=== PATIENT | female | born 1955 | race American Indian/Alaskan Native ===

== ENCOUNTER 2019-11-01 06:36 | Day surgery (SDC) | payer MEDICAID ==
[2019-11-01 07:24] LABS: Hematocrit 41.1 % (30.3-42.9); Hemoglobin 14.2 gm/dl (10.1-14.3); Mean Corpuscular HGB Conc 35 % (30-34); Mean Corpuscular Volume 93 fl (79-97); Platelet Count 295 K/mm3 (140-440); Red Blood Count 4.41 M/mm3 (3.65-5.03)
[2019-11-01 07:37] LABS: INR 1.05 (0.87-1.13)
[2019-11-01 07:38] LABS: Partial Thromboplastin Time 30.9 Sec. (24.2-36.6)
[2019-11-01 07:45] LABS: BUN/Creatinine Ratio 20; Blood Urea Nitrogen 14 mg/dL (7-17); Calcium 9.9 mg/dL (8.4-10.2); Hemolysis Index 3
[2019-11-01] MEDS ORDERED: SODIUM CHLORIDE 0.9% 500 ML 500 ML IV SCH (08:00)
[2019-11-01] MEDS ORDERED: HEPARIN/NS 5000 UNIT/500ML 1,000 ML IR ONE (08:21)
[2019-11-01] MEDS ORDERED: SODIUM CHLORIDE 0.9% 500 ML 0 ML ONE (08:21)
[2019-11-01] MEDS ORDERED: ceFAZolin/Water 2 GM/20 ML 2 GM/20 ML SYRINGE IV ONE (08:22)
[2019-11-01] MEDS: MIDAZOLAM 2 MG/2 ML INJ ONE ×8 (09:09→11:39)
[2019-11-01] MEDS: fentaNYL 100 MCG/2 ML INJ ONE ×8 (09:09→11:39)
[2019-11-01] MEDS: LIDOCAINE (2%) 20 MG/1 ML VIAL 20 ML MDV INFILTRATI ONE ×3 (09:11→09:49)
[2019-11-01] MEDS: HEPARIN 10,000 UNITS/10 ML VIAL ONE ×3 (09:25→10:53)
[2019-11-01] MEDS ORDERED: NITROGLYCERIN SYRINGE 3 ML ONE (09:41)
[2019-11-01] MEDS ORDERED: VERAPAMIL 5 MG/2 ML INJ ONE (09:41)
[2019-11-01] MEDS ORDERED: LIDOCAINE (2%) 20 MG/1 ML VIAL 20 ML MDV INFILTRATI ONE (09:48)
[2019-11-01] MEDS ORDERED: SODIUM CHLORIDE 0.9% 1000 ML 1,000 ML ONE (10:20)
[2019-11-01] MEDS ORDERED: HEPARIN/NS 5000 UNIT/500ML 500 ML IR ONE (10:22)
--- NOTE | 2019-11-01 12:34 | Short Stay Summary ---
Short Stay Documentation Date of service: 11/01/19 Narrative H&P: See H&P - History H&P: obtained from office - Allergies and Medications Current Medications: Allergies No Known Allergies Allergy (Unverified 11/01/19 06:41) Home Medications Medication Instructions Recorded Confirmed Last Taken Type Benazepril/Hydrochlorothiazide 1 tab PO DAILY 11/01/19 11/01/19 10/31/19 History [Benazepril-Hctz 10-12.5 mg Tab] 1 tab Clopidogrel [Plavix] 75 mg PO DAILY 11/01/19 11/01/19 11/01/19 04:30 History 75 mg Ergocalciferol [Vitamin D2] 50,000 unit PO QWEEK 11/01/19 11/01/19 10/29/19 History 1 tab Leucovorin/Pyridox/Mecobalamin 1 tab PO QWEEK 11/01/19 11/01/19 10/31/19 History [Folinic-Plus Caplet] 1 tab [place]-3 Fatty Acids/Fish Oil [Fish 1 each PO DAILY 11/01/19 11/01/19 10/31/19 History Oil] 1 tab Vit D3-Vit K/Berberine/Hops 1 tab PO DAILY 11/01/19 11/01/19 10/31/19 History [Ostera Tablet] 1 tab amLODIPine 5 mg PO DAILY 11/01/19 11/01/19 11/01/19 04:30 History 5 mg cilostazoL [Pletal] 100 mg PO DAILY 11/01/19 11/01/19 10/31/19 History 100 mg Active Medications Sodium Chloride (Nacl 0.9% 500 Ml) 500 mls @ 50 mls/hr IV DIRECT ROSANNA Last Admin: 11/01/19 07:53 Dose: 50 mls/hr Documented by: - Brief post op/procedure progress note Date of procedure: 11/01/19 Pre-op diagnosis: Peripheral Vascular Disease with Bilateral Lower Extremity Claudication Post-op diagnosis: same Procedure: 1. Ultrasound-Guided Access Right Common Femoral Artery 2. Diagnostic Aortogram (No Previous Films for Comparison) 3. Diagnostic Left Lower Extremity Arteriogram (No Previous Films for Comparison) 4. Ultrasound-Guided Access Left Posterior Tibial Artery In Retrograde Fashion 5. Atherectomy with Angioplasty and Stent of Left SFA and Popliteal Artery With 2.1/3.0 Jetstream Atherectomy Catheter and 5 x 150 IN.Pact Drug-Coated Balloon In the Popliteal Artery and 6 x 150 IN.Pact Drug-Coated Balloon In the SFA and Common Femoral Artery Followed by a 6 x 5 cm Viabahn Stent Graft and 7 x 80 EverFlex Self-Expanding Stent in the SFA 6. Angioplasty and Stent of the Left External Iliac Artery with a 7 x 59 Viaban VBX Balloon Expandable Stent Graft 7. Angioplasty of Left Posterior Tibial Artery with a 3 x 220 [place] Balloon 8. Closure of Right Femoral Arteriotomy With a Pro-[place] Closure Device 9. Radiologic Supervision with Interpretation Anesthesia: local, other (Monitored Moderate Sedation) Surgeon: PARAM QUILES Estimated blood loss: minimal Pathology: none Condition: stable - Disposition Condition at discharge: Good Disposition: [id number] TO HOME OR SELFCARE Short Stay Discharge Plan Activity: other (No strenuous activity or heavy lifting for 24 hours) Wound: remove dressing (24 hours) Follow up with: PARAM QUILES MD [Staff Physician] - 14 Days Prescriptions: HYDROcodone/APAP 7.5-325 [[place] 7.5/325] 1 each PO Q6HR PRN #30 tablet PRN Reason: Pain
[2019-11-01] MEDS ORDERED: HYDROcodone/ACETAMINOPHEN 5-325 MG TAB PO PRN (12:42)
[2019-11-01] MEDS ORDERED: MORPHINE 4 MG/1 ML INJ IV ONE (12:42)
--- NOTE | 2019-11-01 12:47 | Operative Report ---
Operative Report Operative Report: Date of Procedure: 11/01/2019 Pre-operative Diagnosis: Peripheral Vascular Disease with Bilateral Lower Extremity Claudication Post-operative Diagnosis: Same Procedure(s): 1. Ultrasound-Guided Access Right Common Femoral Artery 2. Diagnostic Aortogram (No Previous Films for Comparison) 3. Diagnostic Left Lower Extremity Arteriogram (No Previous Films for Comparison) 4. Ultrasound-Guided Access Left Posterior Tibial Artery In Retrograde Fashion 5. Atherectomy with Angioplasty and Stent of Left SFA and Popliteal Artery With 2.1/3.0 Jetstream Atherectomy Catheter and 5 x 150 IN.Pact Drug-Coated Balloon In the Popliteal Artery and 6 x 150 IN.Pact Drug-Coated Balloon In the SFA and Common Femoral Artery Followed by a 6 x 5 cm Viabahn Stent Graft and 7 x 80 EverFlex Self-Expanding Stent in the SFA 6. Angioplasty and Stent of the Left External Iliac Artery with a 7 x 59 Viaban VBX Balloon Expandable Stent Graft 7. Angioplasty of Left Posterior Tibial Artery with a 3 x 220 [place] Balloon 8. Closure of Right Femoral Arteriotomy With a Pro-[place] Closure Device 9. Radiologic Supervision with Interpretation Surgeon: Adolfo Cadena M.D. Band Master: None Anesthesia: 1% Lidocaine/Monitored Moderate Sedation EBL: Minimal Counts: Correct Complications: None Condition: Stable Specimen: None Indication: The patient is a 64-year-old female with a history of tobacco abuse and peripheral vascular disease who was referred to pa with short distance claudication left greater than right. She had a previous CTA with runoff that demonstrated iliofemoral disease. She is in need of a diagnostic arteriogram to evaluate her anatomy secondary to difficulty identifying the true anatomy because of heavy calcification on the CT. She was given the risk, benefits, and alternative procedures and consented to the procedure. Angiographic Findings: Diagnostic aortogram revealed that the aorta was aneurysmal and heavily calcified without any evidence of flow-limiting stenosis. The left lower extremity arteriogram revealed the left common iliac artery was heavily calcified with approximately 20% stenosis. The external iliac artery was occluded at its origin and there was no evidence of reconstitution of the artery. There was approximately 30% stenosis at the origin of the hypogastric artery and the remainder of the artery appeared widely patent without any evidence of flow-limiting stenosis. The left common femoral artery was occluded and there was reconstitution of the profunda artery through collaterals from the hypogastric artery. The SFA was occluded and there was reconstitution of flow in the popliteal artery just distal to the adductor hiatus through collateral flow from the profunda artery. The popliteal artery was diffusely diseased in the above-knee segment with 50 to 75% stenosis. The below-knee segment was patent without any evidence of flow-limiting stenosis. The patient had three- vessel runoff with the anterior tibial artery patent throughout its course without significant flow-limiting stenosis. The peroneal artery occluded in the mid calf without any evidence of distal reconstitution. There was approximately 50% stenosis at the origin of the posterior tibial artery and the remainder of the artery appeared patent throughout the remainder of his course. After intervention the external iliac artery was patent with approximately 20% residual stenosis in the distal artery. The common femoral artery was patent with a dissection that was not flow-limiting however there was approximately 30% reduction of the flow lumen. The SFA and popliteal artery were patent with approximately 15% residual stenosis in the proximal SFA and less than 10% res idual stenosis in the remainder of the SFA and popliteal artery. The posterior tibial artery was patent with less than 10% residual stenosis. Description of Procedure: The patient was brought to the angio suite and laid in supine position. After timeout was performed her right groin and left calf and foot were prepped and draped in normal sterile fashion. Ultrasound was used to identify the right common femoral artery and confirm patency. Once patency was confirmed the overlying skin and soft tissue was anesthetized with lidocaine and an 11 blade was used to make a small stab incision. A curved hemostat was used with ultrasound guidance to bluntly dissect down to the anterior surface of the right common femoral artery and a 21-gauge micropuncture needle was used with ultrasound guidance to access the right common femoral artery. A 0.018 wire was advanced into the right external iliac artery and the micropuncture needle was exchanged for micropuncture sheath by Seldinger technique. The wire and inner dilator were removed and a 0.035 J-wire was advanced into the aorta under fluoroscopy. The micropuncture sheath was then exchanged for 5 [place] sheath by Seldinger technique. I then advanced an Omni Flush catheter into the aorta and remove the wire and performed the diagnostic aortogram with the previously described findings. I then used the 0.035 advantage wire and advanced this over the bifurcation with the Omni Flush catheter and performed the left lower extremity arteriogram with the previously described findings. I then advanced the advantage wire into the hypogastric artery and then advanced the catheter into the artery and exchanged the advantage wire for the J-wire. I then exchanged the 5 Nigerian sheath for a 7 Nigerian 45 cm destination sheath and advan jacqueline this into the distal left common iliac artery. I exchanged the J-wire for a 0.018 V18 wire and used a Navicross catheter and attempted to traverse the occluded external iliac artery. I was eventually able to cross the occluded artery with the Navicross catheter and a 0.018 30 g [place] Wire however upon entering the common femoral artery it became apparent that it was in the subintimal plane so I pulled the catheter and wire back into the common iliac artery and decided to attempt to cross the occluded vessels from a retrograde approach. I used the ultrasound to identify the left posterior tibial artery and once identified the artery I used lidocaine to anesthetize the skin and overlying soft tissue. Using 11 blade to make a small stab incision and then used a micropuncture needle to access the artery. I advanced a 0.018 micropuncture wire and then placed a 4/5 glide slender sheath by Seldinger technique. I infused a radial cocktail through the sheath which contained a combination of heparin, nitroglycerin, and verapamil. I then used a Navicross catheter and V 18 wire to cross the occluded SFA, common femoral, and external iliac artery. I then advanced a vertebral catheter from the 7 Nigerian sheath that was over the bifurcation was able to cannulate the sheath and advanced the V 18 wire through the right femoral sheath. I pulled enough of the V 18 wire out of the right groin and then remove the Navicross catheter and advanced it over the V 18 in a antegrade fashion into the posterior tibial artery. I then exchanged the V 18 wire for a 0.014 ThruWay wire and performed atherectomy of the SFA and popliteal artery begin in the midportion of the SFA as I worry that the common femoral artery and proximal SFA had dissection flaps. After performing atherectomy I performed an angiogram there revealed an area of extravasation at my proximal point of begin an atherectomy. I performed angioplasty with a 5 x 200 balloon across the area of extravasation in left the balloon inflated for approximately 5 minutes. The follow-up angiogram revealed less than 20% residual stenosis however there was a slight blush of contrast outside of the artery so I decided to place a 6 x 5 cm Viabahn Stent Graft across the area of extravasation. I then used two 5 x 150 IN.Pact drug-coated balloons to perform angioplasty of the popliteal artery and mid SFA. I performed angioplasty of the proximal SFA and common femoral artery with a 6 x 150 IN.Pact Drug-Coated Balloon. This resulted in approximately 50% residual stenosis within the common femoral artery and approximately 60% residual stenosis in the proximal SFA. I advanced a 3 x 220 [place] balloon into the posterior tibial artery and then remove the 4/5 [place] Slender Sheath from the posterior tibial artery and performed angioplasty to seal the access site. I then pulled the balloon back to the origin of the posterior tibial artery and performed angioplasty with a result of less than 10% residual stenosis. I next placed a 7 x 80 EverFlex Self-Expanding Stent across the residual stenosis in the proximal SFA and postdilated this with a 5 mm balloon with a result of approximately 15% residual stenosis. I pulled the sheath back into the proximal common iliac artery and used the previously used 6 mm drug-coated balloon to predilate the external iliac artery. I then placed a 7 x 59 Viabahn VBX Balloon Expandable Stent Graft and deployed it in the external iliac artery with a result of less than 10% residual stenosis in the proximal portion of the artery however there was approximately 20% residual stenosis in the distal artery that was treated with just balloon angioplasty alone. I used the 7 mm balloon from the stent graft to perform angioplasty of the common femoral artery and this reduced the 50% stenosis to approximately 30% stenosis with some evidence of dissection however this was not flow-limiting. Because I crossed the common femoral and a subintimal plane the profunda artery continue to be filled from the hypogastric and was not in continuity with the common femoral artery so I advanced the Navicross catheter and a 0.014 Choice PT wire down to the origin of the profunda artery was able to cannulate the profunda artery. I advanced the [place] cross catheter into the artery and exchanged the Choice PT wire for the advantage wire. I performed angioplasty of the origin of the profunda artery with a 5 mm balloon. This resulted in methodist of continuity of the profunda artery with a common femoral artery. I then pulled the sheath back into the right external iliac artery and advanced the advantage wire into the aorta. I remove the sheath and then used a pro-glide closure device for closure of the right femoral arteriotomy. A sterile dressing was then applied to the right groin and the left ankle. The patient tolerated procedure well was transported to the recovery area in stable condition.
[2019-11-01] MEDS ORDERED: ONDANSETRON 4 MG/2 ML INJ ONE (13:10)
[2019-11-01] MEDS ORDERED: ONDANSETRON 4 MG/2 ML INJ IV ONE (13:10)
[2019-11-01 13:57] VITALS: BP 168/79
== END 2019-11-01 14:00 | disposition home or self-care (01) ==
LOC: CATHLABREC 06:36 → CATH 06:36 → CATHLABREC 14:00
PROVIDERS: ATTEND Surgery Vascular Surgery
DX: I70.213 Atherosclerosis of native arteries of extremities with intermittent claudication, bilateral legs (principal); F17.210 Nicotine dependence, cigarettes, uncomplicated; I10 Essential (primary) hypertension; Z98.890 Other specified postprocedural states; Z98.41 Cataract extraction status, right eye; Z86.73 Personal history of transient ischemic attack (TIA), and cerebral infarction without residual deficits; Z79.899 Other long term (current) drug therapy; Z79.01 Long term (current) use of anticoagulants
CPT/HCPCS: 36415; 37221; 37227; 37228; 75625; 75710; 76937; 80048; 85027; 85610; 85730; 99156; 99157; C1724; C1725; C1760; C1769; C1874; C1876; C1887; C1894; C2623; J0690; J1644; J2250; J2270; J2405; J3010; J7030; J7040; Q9967